=== PATIENT | male | born 1985 | race Caucasian/White ===

== ENCOUNTER 2024-05-08 08:03 | Outpatient (CLI) | payer OTHER, SELFPAY ==
[2024-05-08 08:30] LABS: Basophils Absolute Auto 0.04 K/mm3 (0.00-0.10); Basophils Percent Auto 0.6 % (0.0-1.0); Eosinophils Absolute Auto 0.32 K/mm3 (0.02-0.50); Eosinophils Percent Auto 4.8 % (1.0-6.0); Hematocrit 45.4 % (40.0-54.0); Hemoglobin 15.6 g/dL (14.0-18.0); Immature Granulocyte Absolute 0.05 K/mm3 (0.00-0.00); Immature Granulocyte Percent A 0.7 % (0.0-0.0); Lymphocytes Absolute Auto 1.43 K/mm3 (1.10-4.50); Lymphocytes Percent Auto 21.4 % (18.0-42.0); Mean Corpuscular HGB Conc 34.4 g/dL (32-36); Mean Corpuscular Hemoglobin 29.2 pg (27.0-31.0); Mean Corpuscular Volume 84.9 fL (78.0-102.0); Mean Platelet Volume 9.3 fl (8.7-11.0); Monocytes Absolute Auto 0.61 K/mm3 (0.10-0.90); Monocytes Percent Auto 9.1 % (2.0-11.0); Neutrophils Absolute Auto 4.22 K/mm3 (1.70-7.20); Neutrophils Percent Auto 63.4 % (50.0-70.0); Platelet Count Result 217 K/mm3 (150-420); Red Blood Count 5.35 M/mm3 (4.70-6.10); Red Cell Distribution Width 11.9 % (11.6-14.4); White Blood Count 6.7 K/mm3 (4.8-10.8)
[2024-05-08 09:21] LABS: Alanine Aminotransferase 53 U/L (16-63); Alkaline Phosphatase 88 U/L (46-116); Anion Gap 12 mmol/L (4-12); Aspartate Amino Transferase 23 U/L (15-37); Bilirubin,Total 0.6 mg/dL (0.00-1.00); Blood Urea Nitrogen 12 mg/dL (7-18); Calcium 8.4 mg/dL (8.5-10.1); Carbon Dioxide 25 mmol/L (21-32); Chloride 104 mmol/L (98-108); Cholesterol 152 mg/dL (0-200); Estimated Glomerular Filt Rate > 60; Glucose 103 mg/dL (70-99); HDL Direct 40 mg/dL (40-60); LDL Cholesterol Calculated 101 mg/dL (<130); Osmolality Calculated 291 mOsm/kg (285-295); Potassium 4.2 mmol/L (3.5-5.1); Sodium 141 mmol/L (136-145); Total Protein 6.7 g/dL (6.4-8.2); Triglycerides 56 mg/dL (0-150)
[2024-05-08 09:24] LABS: Thyroid Stimulating Hormone Reflex 0.99 u/IU/mL (0.36-3.74)
== END 2024-05-08 08:04 | disposition home or self-care (01) ==
LOC: CHSLAB 08:07
PROVIDERS: PCP Family Medicine; Visit Provider Family Medicine
DX: Z00.00 Encounter for general adult medical examination without abnormal findings (principal); E03.9 Hypothyroidism, unspecified
CPT/HCPCS: 36415; 80053; 80061; 84443; 85025

== ENCOUNTER 2024-06-20 07:53 | Outpatient (CLI) | payer OTHER, SELFPAY ==
--- NOTE | ~2024-06-20 | CT_ITS ---
CT sinus wo con Ordering provider: Lyndon Long, History: . chronic sinusitis, unable to breathe through Lt. nostril x6m . Comparison: None. Technique: Thin slice Scans CT of the paranasal sinuses was performed with coronal and sagittal refor matted images. No IV contrast. . Automated exposure control and iterative reconstruction technique w ere employed. The dose-length product was 213.56 mGy-cm. Findings: NASAL SEPTUM: Right nasal septal deviation. OSTEOMEATAL UNITS: Bilaterally obliterated. NASAL TURBINATES AND NASOPHARYNX: Enlarged hyperdense turbinates is seen on the left side with possib le left ashley bullosa in the middle turbinate. PARANASAL SINUSES: Hyperdense material is seen in the left nasal cavity, left ethmoid , left sphenoid , left frontal and left maxillary sinuses which may indicate inspissated mucus versus fungal infectio n. Clinical correlation advised. Distraction of the medial wall of the left maxillary sinus is noted. Mucosal thickening of the right maxillary, ethmoid and frontal sinuses is seen. Further Evaluation a dvised. Minimal fat stranding in the inferior aspect of the left orbit is seen with possible destruct ion of the wall in the area. Clinical evaluation advised.0 VISUALIZED MASTOIDS: Normal as visualized. BONES: Normal. SUPERFICIAL SOFT TISSUES/VISUALIZED BRAIN PARENCHYMA: Normal. IMPRESSION: Complete opacification of the left maxillary, sphenoid, frontal and sphenoid sinuses with hyperdense material which raises the possibility of inspissated mucus versus fungal infection. Minimal soft tissue is seen in the medial aspect of the left orbit with destruction of the wall in th e area anteriorly. Loss of bone is also seen in the medial left maxillary sinus.Clinical evaluation a dvised. Right nasal septal deviation. Hyperdense material also seen in the left nasal cavity. Reviewed, dictated and finalized at location A. IMPRESSION: Complete opacification of the left maxillary, sphenoid, frontal and sphenoid si nuses with hyperdense material which raises the possibility of inspissated mucu s versus fungal infection. Minimal soft tissue is seen in the medial aspect of the left orbit with destruc tion of the wall in the area anteriorly. Loss of bone is also seen in the media l left maxillary sinus.Clinical evaluation advised. Right nasal septal deviation. Hyperdense material also seen in the left nasal cavity.
--- OUTSIDE RECORDS SUMMARY | 2024-06-20 07:57 | XMS_ITS | Clinical Summary ---
Author Organization [facility] Address [facility] [place] [address] Care Team Providers Care Retail Sales Associate Seasonal Name Role Phone Unavailable Primary Care Provider Unavailabl e Social History Tobacco Use Types Packs/Day Years Used Date Smoking Tobacco: Never Assessed Sex and Gender Information Value Date Recorded Sex Assigned at Not on file Legal Sex Male 8:30 PM CDT Gender Identity Not on file Sexual Orientation Not on file Plan of Treatment Health Maintenance Due Date Last Done Comments Annual Physical 06/06/1986 Hepatitis C 06/06/2001 DTaP, Tdap and Td Vaccines ( 1 - Tdap) 06/06/2002 Hepatitis B Vaccines (1 of 3 - 19+ 3-dose series) 06/06/2002 COVID-19 Vaccine (2023-2 5 season) 2023 HPV Vaccines Aged Out No longer eligi ble based on patient's age to complete this topic Meningococcal B Vaccine Aged Out No l onger eligible based on patient's age to complete this topic Meningococcal Vaccine Aged Out No josé miguel allen eligible based on patient's age to complete this topic Pneumococcal Vaccine: Pediat rics (0 to 5 Years) and At-Risk Patients (6 to 64 Years) Aged Out No longer eligible b ased on patient's age to complete this topic RSV Immunizations Under 20 Months Aged Out No longer eligible based on patient's age to complete this topic
--- OUTSIDE RECORDS SUMMARY | 2024-06-20 07:57 | XMS_ITS | Data Portability ---
Author Organization [facility], Main Office Address [address] [place] [address] Care Team Providers Care Futures Trader Name Role Phone KATHY JONAS Primary Care Provider [phone] Assessment No assessment recorded. Plan of Treatment Reminders Order Date Submit Date Provider Last Modified By Organization Details Last Modified Time Details Appointments None record ed. Lab None record ed. Referral None record ed. Procedures None record ed. Surgeries None record ed. Imaging None record ed. Medication Orders None record ed. Patient TargetsNo targets recorded. Patient Instructions Encounter Date Encounter Id Patient Instructions Last Modified By Organization Details Last Modified Time 06/02/2024 [id number] this patient ruth l require a sinus CT and sinus surgery. We discussed Dupixent [email or web address] Not available 06/02/2024 11:26:18 Reason for Referral None Reported. Problems Name Problem SNOMED Code Status Onset Date Resolution Date Notes Provider Name and Address Organization Details Recorded Time Chronic sinusitis 45585152 Active 2024 Emily Knowles RN [facility], [facility] 5 11:15:14 Sinusitis co-occurre nt with nasal polyps 45932890766114 Active 2024 Lyndon Long MD [address] [place] [address], [place], [address] [facility] 5 11:25:50 Problem Notes None recorded. Medical Equipment None Reported. Allergies No known drug allergies Medications Name Sig Start Date Stop Date Status Note LastModified by Organization Details LastModified Time prednisone 20 mg tablet TAKE 2 TABLETS BY MOUTH DAILY FOR 5 DAYS 06/02 completed Not Available Not Available Not Available amoxicillin 875 mg-potassium clavulanate 125 mg tablet TAKE 1 TABLET BY MOUTH TWICE DAILY FOR 10 DAYS 06/02 completed Not Available Not Available Not Available Flonase Allergy Relief active Not Available Not Available Not Available Vitals Date Recorded Body weight Body mass index (BMI) Body height Body temperature Provider Name and Address Organization Details Last Updated DateTime 06/02/2024 221440.17 g 31.7 kg/m2 185.42 cm 97.4 [degF] Emily Knowles RN [facility] [employer] [facility] 06/02/2024 11:03:33 Social History Question Answer Notes LastModified by Organizat ion Details LastModified Time Tobacco Smoking Status Never Smoker Emily Knowles RN null, [facility] [employer] [facility] 06/02/2024 11:03:00 What Is Your Level Of Alcohol Consumption? Occasional [email or web address] Information not available 06/02/2024 Sex: Unknown Functional Status None recorded. Mental Status None recorded. Family History Nothing Reported Notes:NO ENT Medical History Condition Response NO SIGNIFICANT PAST MEDICAL HISTORY Y Past Encounters Encounter ID Performer Location Encounter Start Date Encounter Closed Date Diagnosis/Indication Diagnosis SNOMED-CT Code Diagnosis ICD10 Code Diagnosis Note [id number] Lyndon Long MD [facility] [place] [address] [place] [address] 06/02/2024 10:49:34 06/04/2024 15:23:04 Sinusitis co-occurrent with nasal polyps 6444373354 9102 J32.9 Health Concerns Section Related Observation LastModified by Organization Detai ls LastModified Time None Recorded Concern Status LastModified by Organization Details LastModified Time None Recorded Advance Directives Directive None Recorded Payers Encounter Date Sequence Insurance Name Policy Number Policy Wall Covered Member ID Wall Member ID Guarantor Name 06/02/2024 1 [employer] [id number] Marcelo Burnham [id number] Marcelo Burnham Notes Date Note Type Note Provider Name and Address Organization Details Recorded Time 06/02/2024 text/html this patient reports left nostril congestion since December. He started using a Neti pot and Flonase. Lyndon Long MD [address] [place] [address], [id number], [facility] [employer] [facility] 06/02/2024 11:27:01
== END 2024-06-20 07:54 | disposition home or self-care (01) ==
LOC: CHSIMG 07:55
PROVIDERS: PCP Family Medicine; Visit Provider Otolaryngology
DX: J32.4 Chronic pansinusitis (principal); J34.2 Deviated nasal septum
CPT/HCPCS: 70486

== ENCOUNTER 2025-02-02 15:53 | Outpatient (CLI) | payer OTHER, SELFPAY ==
--- NOTE | ~2025-02-02 | CT_ITS ---
EXAMINATION: CT sinus wo con COMPARISON: 06/20/2024 HISTORY: Chronic sinusitis TECHNIQUE: Axial images were obtained without IV contrast. Sagittal, coronal reconstruction images were obtained from the axial views. CT scan performed using dose optimization techniques including the following automated exposure control; adjustment of mA and/or kV; use of iterative reconstruction technique. Automatic exposure control was used to reduce radiation dose. Permanent radiation dose record is archived to PACS. FINDINGS: The visualized brain parenchyma appears unremarkable. The optic globes appear intact. The remaining soft tissues appear grossly unremarkable There is severe opacification with expansion of the frontal sinuses and the ethmoidal air cells with expansion of the left maxillary sinus and the ostiomeatal complex with abnormal density eroding the left medial orbit extending into the orbit itself mass effect upon the lateral rectus and superior rectus muscles with mild deviation of the optic nerve laterally. There is extension posteriorly into the sphenoid sinus with erosion of the medial wall in this location, involvement of the adjacent brain parenchyma is considered unlikely but not excluded. The nasal septum is deviated to the right. The left ostiomeatal complexes are not clearly identified with complete opacification of the left nasal cavity which is completely obstructed with underlying mass. The nasal septum is deviated to the right with thickening of the right-sided turbinates. Minimal mucosal thickening in the right maxillary sinus. Moderate mucosal thickening in the right ethmoid sinus. Orbital floors and cells appear intact. IMPRESSION: Opacification with expansion of the sinuses detailed above with extension into the retrobulbar tissues and possibly the brain parenchyma. Underlying polyp formation suspected be considered. Other etiologies are not excluded. Compared to the previous exam the findings appear significantly pr ogressed. Contrast-enhanced MRI of the brain and orbits is recommended Reviewed, dictated and finalized at location P. ENGINE LATHE SET UP OPERATOR IMPRESSION: Opacification with expansion of the sinuses detailed above with ext ension into the retrobulbar tissues and possibly the brain parenchyma. Underlyi ng polyp formation suspected be considered. Other etiologies are not excluded. Compared to the previous exam the findings appear significantly progressed. Con trast-enhanced MRI of the brain and orbits is recommended
== END 2025-02-02 15:54 | disposition home or self-care (01) ==
LOC: MICIMG 15:55
PROVIDERS: PCP Otolaryngology; Visit Provider Otolaryngology
DX: J32.9 Chronic sinusitis, unspecified (principal); J34.2 Deviated nasal septum; J33.9 Nasal polyp, unspecified; J30.89 Other allergic rhinitis; B49 Unspecified mycosis
CPT/HCPCS: 70486